=== PATIENT | male | born 1975 | race African-American/Black ===

== ENCOUNTER 2021-06-02 21:05 | Emergency (ER) | payer BC, OTHER ==
[~2021-06-02] VITALS: Ht 185.4 cm; Wt 93.0 kg
--- NOTE | 2021-06-02 21:20 | NUR ---
BIBS C/O MID ABDOMINAL PAIN SINCE 3AM +N/V/D. EMESIS X6 TODAY. PT A/OX4. TOLERATING R/A WELL
[2021-06-02 21:58] LABS: BASOPHILS % (AUTO) 0.1 % (0.0-2.0); EOSINOPHILS % (AUTO) 0.8 % (0.0-6.0); HEMATOCRIT 48 % (39-51); HEMOGLOBIN 16.6 g/dL (13.5-17.5); LYMPHOCYTES # (AUTO) 0.4 K/uL (0.8-4.8); LYMPHOCYTES % (AUTO) 6.3 % (20.0-44.0); MEAN CORPUSCULAR HGB CONC 35 g/dl (31.0-36.0); MEAN CORPUSCULAR VOLUME 85 fL (80-96); MONOCYTES # (AUTO) 0.6 K/uL (0.1-1.30); MONOCYTES % (AUTO) 8.4 % (2.0-12.0); NEUTROPHILS # (AUTO) 5.7 K/uL (1.8-8.9); NEUTROPHILS % (AUTO) 84.4 % (43.0-81.0); PLATELET COUNT (AUTO) 274 K/uL (150-450); RED BLOOD CELL COUNT(AUTO) 5.61 MIL/uL (4.5-6.0); WHITE BLOOD COUNT (AUTO) 6.8 K/uL (4.3-11.0)
--- NOTE | 2021-06-02 21:58 | NUR ---
URINE COLLECTED AND SENT TO THE LAB.
[2021-06-02 22:00] LABS: BILIRUBIN,URINE NEGATIVE (NEGATIVE); COLOR,URINE YELLOW (YELLOW); LEUKOCYTE ESTERASE ,URINE NEGATIVE (NEGATIVE); NITRITE, URINE NEGATIVE (NEGATIVE); PROTEIN,URINE NEGATIVE (NEGATIVE); UGLUCOSE NEGATIVE (NEGATIVE)
[2021-06-02 22:13] LABS: CALCIUM, SERUM 8.3 mg/dL (8.5-10.1); CREATININE 1.4 mg/dL (0.6-1.3); POTASSIUM 3.4 mmol/L (3.5-5.1)
[2021-06-02 22:17] LABS: BACTERIA,URINE None seen /HPF (None Seen); MUCUS,URINE Many /LPF (None Seen); RBC,URINE 0-2 /HPF (0-2); SQUAMOUS EPITHELIAL CELL,UR 0-2 /HPF (None Seen); WBC,URINE 0-2 /HPF (0-3)
[2021-06-02 22:19] LABS: ALBUMIN 3.9 g/dL (3.4-5.0); BILIRUBIN,DIRECT 0.1 mg/dL (0.0-0.2); BILIRUBIN,TOTAL 0.7 mg/dL (0.2-1.0); TOTAL PROTEIN, SERUM 7.6 g/dL (6.4-8.2)
--- NOTE | 2021-06-02 22:20 | NUR ---
PT TAKEN TO CT
[2021-06-02] MEDS ORDERED: ONDANSETRON HCL/PF 4 MG/2 ML VIAL ONE (22:29)
[2021-06-02] MEDS: IV NS 0.9% 1,000 ML BAG IV ONE (22:37)
[2021-06-02] MEDS: ONDANSETRON HCL/PF - ER 4 MG/2 ML VIAL IV ONE (22:37)
--- NOTE | 2021-06-02 22:38 | NUR ---
RAC #[id number]; PATENT AND INTACT
--- NOTE | 2021-06-03 00:25 | NUR ---
Patient discharged to home in stable condition. Written and verbal after care instructions given. Patient verbalizes understanding of instruction.P/T ambulatory with a steady gait. DC IV W/ NO ACTIVE BLEEDING.
[2021-06-03 00:26] VITALS: BP 140/80
[2021-06-03] MEDS ORDERED: ONDA4TAB11 PO (00:27)
== END 2021-06-03 00:33 | disposition home or self-care (01) ==
LOC: ER 21:10
DX: K52.9 Noninfective gastroenteritis and colitis, unspecified (principal); K43.9 Ventral hernia without obstruction or gangrene; Z60.2 Problems related to living alone
CPT/HCPCS: 36415; 74176; 80048; 80076; 81001; 83690; 85025; 96361; 96374; 99285; J2405 ×2; J7030

== ENCOUNTER 2023-04-16 03:58 | Emergency (ER) | payer BC, MEDICAID ==
[~2023-04-16] VITALS: Ht 185.4 cm; Wt 97.5 kg
[~2023-04-16 03:58] MED LIST: ONDA4TAB11 PO
[2023-04-16 05:03] VITALS: BP 143/94; TEMP 98.3; O2SAT 98
[2023-04-16] MEDS ORDERED: NAPR500T6 PO (05:08)
[2023-04-16] MEDS ORDERED: NAPROXEN 250 MG TABLET ONE (05:17)
[2023-04-16] MEDS ORDERED: NAPROXEN 250 MG TABLET PO ONE (05:30)
== END 2023-04-16 05:27 | disposition home or self-care (01) ==
LOC: ER 04:11
DX: R09.1 Pleurisy (principal); Z60.2 Problems related to living alone